=== PATIENT | female | born 1990 | race Caucasian/White ===

== ENCOUNTER 2022-05-15 07:34 | Emergency (ER) | payer SELFPAY ==
[~2022-05-15] VITALS: Ht 152.4 cm; Wt 79.8 kg
[2022-05-15 07:37] VITALS: BP 133/93
--- NOTE | 2022-05-15 07:44 | NUR ---
PT AMBULATED TO ROOM 6
--- NOTE | 2022-05-15 07:48 | NUR ---
SIN AT BEDSIDE FOR EVALUATION
[2022-05-15] MEDS ORDERED: FAMOTIDINE 20 MG TAB PO ONE (07:55)
[2022-05-15] MEDS ORDERED: diphenhydrAMINE 50 MG CAP PO ONE (07:55)
[2022-05-15] MEDS ORDERED: predniSONE 20 MG TAB PO ONE (07:55)
--- NOTE | 2022-05-15 07:55 | NUR ---
32YO FEMALE PT C/O RASH X3DAYS. REPORTS SUDDEN ONSET AND DENIES RECENT CHANGE IN DIET OR SKIN PRODUCTS. STATES MOVING FROM [place] 5 DAYS AGO. PRESENTS WITH REDDENED RASH NOTED MOST IN CHEST , UPPER BACK AND LEG. THROAT REDDENED W/O SWELLING. DENIES TAKING MEDICATION, SOB, FEVR OR CHILLS. PT AAOX4, RESPIRATIONS EVEN AND UNLABORED. YAKUT SPEAKING HX:DENIES NKA
[2022-05-15] MEDS ORDERED: FAMO-90 PO (07:58)
[2022-05-15] MEDS ORDERED: DIPH25TA53 PO (07:58)
[2022-05-15] MEDS ORDERED: EPIN1KIT31 IM (07:58)
[2022-05-15] MEDS ORDERED: BENC TP (07:58)
[2022-05-15] MEDS ORDERED: PRED20TA5 PO (07:58)
--- NOTE | 2022-05-15 08:18 | NUR ---
Patient discharged with v/s stable. Written and verbal after care instructions FOR HIVES given and explained. Patient alert, oriented and verbalized understanding of instructions. Ambulatory with steady gait. All questions addressed prior to discharge. ID band removed. Patient advised to follow up with PMD. Rx of BENADRYL ITCH STOPPING CREAM, BENADRYL, EPIPEN, PEPCID, DELTASONE given. Opportunity to ask questions provided and answered.
== END 2022-05-15 08:18 | disposition home or self-care (01) ==
LOC: MED 07:34
DX: L50.9 Urticaria, unspecified (principal)
CPT/HCPCS: 99284; J7512; Q0163